=== PATIENT | male | born 1995 | race Two or more races ===

== ENCOUNTER 2023-03-01 18:56 | Inpatient (IN) | payer OTHER ==
[~2023-03-01] VITALS: Ht 203.2 cm; Wt 63.2 kg
[2023-03-01] MEDS ORDERED: ONDANSETRON HCL 4 MG/2 ML VIAL IV ONE (19:15)
[2023-03-01] MEDS ORDERED: SODIUM CHLORIDE 0.9% 1,000 ML IVB ONE (19:15)
[2023-03-01 20:16] LABS: Basophils # (auto) 0.3 10 ^3/uL (0-0.2); Basophils % (auto) 2.6 % (0.0-2.0); Eosinophils # (auto) 0.1 10 ^3/uL (0-0.8); Eosinophils % (auto) 0.5 % (0.0-7.0); Hematocrit 51.9 % (41.0-53.0); Hemoglobin 16.9 g/dL (13.5-17.5); Lymphocytes # (auto) 0.7 10 ^3/uL (0.4-5.4); Lymphocytes % (auto) 5.8 % (10.0-50.0); Mean Corpuscular Hemoglobin 30.7 pg (28.0-32.0); Mean Corpuscular Hgb Conc. 32.5 g/dL (32.0-36.0); Mean Corpuscular Volume 94.4 fL (80.0-100.0); Monocytes # (auto) 0.8 10 ^3/uL (0-1.3); Monocytes % (auto) 5.9 % (0.0-12.0); Neutrophils # (auto) 10.8 10 ^3/uL (1.6-8.6); Neutrophils % (auto) 85.2 % (37.0-80.0); Nucleated Red Blood Cells % 0.1 %; Red Cell Distribution Width 13.7 % (11.8-14.3); White Blood Cell 12.7 10^3/uL (4.4-10.8)
[2023-03-01 20:31] LABS: Alanine Aminotransferase 28 U/L (7-40); Albumin 4.7 g/dL (3.2-4.8); Alkaline Phosphatase 91 U/L (46-116); Anion Gap 10 (5-15); Aspartate Aminotransferase 33 U/L (13-40); BUN/Creatinine Ratio 11.6 (10.0-20.0); Blood Urea Nitrogen 13 mg/dL (9-23); Calcium 9.8 mg/dL (8.7-10.4); Carbon Dioxide 22 mmol/L (20-30); Chloride 97 mmol/L (98-107); Glucose 240 mg/dL (74-106); Lipase 32 U/L (12-53); Potassium 4.9 mmol/L (3.5-5.1); Sodium 129 mmol/L (136-145)
[2023-03-01 20:32] LABS: Bilirubin, Total 0.7 mg/dL (0.2-1.0); Total Protein 7.8 g/dL (5.7-8.2)
[2023-03-01 20:42] LABS: Platelet Estimate Adequate
[2023-03-01] MEDS ORDERED: LACTATED RINGER'S 1,000 ML IV ONE ×2 (21:45→22:30)
[2023-03-01 22:08] LABS: Urine Bacteria NONE SEEN /hpf (None Seen); Urine Blood Negative /uL (Negative); Urine Clarity Clear (Clear); Urine Color Yellow (Yellow); Urine Hyaline Cast MOD /lpf (0 - 2); Urine Mucus FEW (None Seen); Urine Protein, UAD 1+ (Negative); Urine Specific Gravity 1.023 (1.001-1.035); Urine Urobilinogen Normal (Negative); Urine WBC 4 /hpf (0 - 3); Urine pH 5.5 (5.0-8.0)
[2023-03-01] MEDS ORDERED: INSULIN LANTUS (GLARGINE) 1 /0.01ml (100units/ml) SC ONE (22:15)
[2023-03-01] MEDS ORDERED: DEXTROSE (50%) 50ML SYRG IV PRN ×2 (22:15→22:30)
[2023-03-01] MEDS ORDERED: SODIUM CHLORIDE 0.9% 1,000 ML IV SCH (22:15)
[2023-03-01] MEDS ORDERED: INSULIN DRIP 100 UNIT/100ML 100 ML IV SCH (22:15)
[2023-03-01] MEDS ORDERED: ACCU-CHEK COMFORT CURVE STRIP VI SCH (22:30)
[2023-03-01] MEDS ORDERED: HYDROcodone-ACET 5/325MG TAB PO PRN (22:30)
[2023-03-01] MEDS ORDERED: InsuLIN REG 1unit/0.01ml Soln (100units/ml) IV ONE (22:30)
[2023-03-01] MEDS ORDERED: DOCUSATE SOD 100 MG CAP PO PRN (22:30)
[2023-03-01] MEDS ORDERED: ONDANSETRON HCL 4 MG/2 ML VIAL IV PRN (22:30)
[2023-03-01 22:34] LABS: Base Excess -1.8 mmol/L (-2.0-2.0)
[2023-03-01 23:02] LABS: Chloride 95 mmol/L (98-107); Potassium 5.1 mmol/L (3.5-5.1); Sodium 128 mmol/L (136-145)
[2023-03-01 23:03] LABS: Anion Gap 11 (5-15); Calcium 9.5 mg/dL (8.7-10.4); Carbon Dioxide 22 mmol/L (20-30)
[2023-03-01 23:08] LABS: BUN/Creatinine Ratio 17.5 (10.0-20.0); Blood Urea Nitrogen 21 mg/dL (9-23); Glucose 256 mg/dL (74-106)
[2023-03-02] VITALS (8 sets, daily range): BP systolic 113–122; BP diastolic 60–80; PULSE 101–127; RESP 17–20; TEMP 98.2–100.5; O2SAT 92–97
[2023-03-02] MEDS: ACCU-CHEK COMFORT CURVE STRIP VI SCH ×4 (00:20→17:31)
[2023-03-02] MEDS ORDERED: InsuLIN REG 1unit/0.01ml Soln (100units/ml) ONE ×2 (00:28→06:01)
[2023-03-02] MEDS ORDERED: ONDANSETRON HCL 4 MG/2 ML VIAL ONE (00:28)
[2023-03-02] MEDS ORDERED: ACETAMINOPHEN 325 MG TAB PO ONE ×2 (00:28→17:34)
[2023-03-02] MEDS: ACETAMINOPHEN 325 MG TAB PO PRN ×2 (00:33→17:36)
[2023-03-02] MEDS ORDERED: SODIUM CHLORIDE 0.9% 1,000 ML IV SCH ×2 (02:15→04:15)
[2023-03-02 02:44] LABS: COVID19 ANTIGEN SOFIA FIA NEGATIVE (NEGATIVE)
[2023-03-02 02:45] LABS: Rapid Influenza A Negative (Negative)
[2023-03-02 02:48] LABS: Rapid Influenza B Positive (Negative)
[2023-03-02 05:33] LABS: Basophils # (auto) 0 10 ^3/uL (0-0.2); Basophils % (auto) 0.1 % (0.0-2.0); Eosinophils # (auto) 0 10 ^3/uL (0-0.8); Hematocrit 40.1 % (41.0-53.0); Hemoglobin 13.7 g/dL (13.5-17.5); Lymphocytes # (auto) 0.9 10 ^3/uL (0.4-5.4); Lymphocytes % (auto) 8.8 % (10.0-50.0); Mean Corpuscular Hemoglobin 31.2 pg (28.0-32.0); Mean Corpuscular Hgb Conc. 34.1 g/dL (32.0-36.0); Mean Corpuscular Volume 91.4 fL (80.0-100.0); Neutrophils # (auto) 8.9 10 ^3/uL (1.6-8.6); Neutrophils % (auto) 82.1 % (37.0-80.0); Red Blood Cells 4.39 10^6/uL (4.5-5.90); Red Cell Distribution Width 13.3 % (11.8-14.3); White Blood Cell 10.8 10^3/uL (4.4-10.8)
[2023-03-02 05:37] LABS: Alanine Aminotransferase 19 U/L (7-40); Albumin 3.9 g/dL (3.2-4.8); Alkaline Phosphatase 71 U/L (46-116); Anion Gap 7 (5-15); Aspartate Aminotransferase 20 U/L (13-40); Calcium 8.6 mg/dL (8.7-10.4); Carbon Dioxide 24 mmol/L (20-30); Chloride 100 mmol/L (98-107); Glucose 196 mg/dL (74-106); Potassium 4.2 mmol/L (3.5-5.1); Sodium 131 mmol/L (136-145)
[2023-03-02 05:38] LABS: BUN/Creatinine Ratio 21.3 (10.0-20.0); Blood Urea Nitrogen 20 mg/dL (9-23)
[2023-03-02 05:40] LABS: Bilirubin, Total 0.5 mg/dL (0.2-1.0); Total Protein 6.4 g/dL (5.7-8.2)
[2023-03-02] MEDS ORDERED: SODIUM CHLOR 0.9% PF (SALINE LOCK) 10ML VIAL/SYR IV SCH (06:00)
[2023-03-02] MEDS: InsuLIN REG 1unit/0.01ml Soln (100units/ml) SC SCH ×4 (06:04→17:32)
[2023-03-02] MEDS ORDERED: INSREG3 IV (09:38)
[2023-03-02] MEDS ORDERED: INSULIN LANTUS (GLARGINE) 1 /0.01ml (100units/ml) SC SCH ×2 (10:00→22:00)
[2023-03-02] MEDS ORDERED: ENOXAPARIN SOD 40 MG/0.4 ML SYRINGE SC SCH (10:00)
[2023-03-02] MEDS ORDERED: ENOXAPARIN SOD 40 MG/0.4 ML SYRINGE SC ONE (10:11)
[2023-03-02] MEDS: OSELTAMIVIR 75 MG CAP PO SCH ×2 (10:12→21:40)
[2023-03-02] MEDS ORDERED: OSELTAMIVIR 75 MG CAP PO ONE ×2 (10:12→21:32)
[2023-03-02] MEDS: SODIUM CHLORIDE 0.9% 1,000 ML IV SCH ×2 (10:53→23:56)
[2023-03-02] MEDS ORDERED: ERGOCALCIFEROL 50,000 UNIT(1.25MG) CAP PO SCH (11:45)
[2023-03-02] MEDS ORDERED: ERGOCALCIFEROL 50,000 UNIT(1.25MG) CAP PO ONE (12:07)
[2023-03-02] MEDS ORDERED: METOCLOPRAMIDE HCL 10 MG TAB PO ONE ×2 (13:52→21:31)
[2023-03-02] MEDS ORDERED: CEPHALEXIN 250 MG CAP PO ONE ×2 (13:53→21:31)
[2023-03-02] MEDS: CEPHALEXIN 250 MG CAP PO SCH ×2 (13:55→21:40)
[2023-03-02] MEDS: METOCLOPRAMIDE HCL 10 MG TAB PO SCH ×2 (13:55→21:40)
[2023-03-02] MEDS ORDERED: INSULIN LANTUS (GLARGINE) 1 /0.01ml (100units/ml) SC ONE (21:56)
[2023-03-03] VITALS (8 sets, daily range): BP systolic 101–126; BP diastolic 67–77; PULSE 94–111; RESP 16–20; TEMP 97.7–101.4; O2SAT 94–100
[2023-03-03] MEDS ORDERED: InsuLIN REG 1unit/0.01ml Soln (100units/ml) ONE ×3 (00:11→16:50)
[2023-03-03] MEDS: ACCU-CHEK COMFORT CURVE STRIP VI SCH ×4 (00:19→16:44)
[2023-03-03] MEDS: InsuLIN REG 1unit/0.01ml Soln (100units/ml) SC SCH ×4 (00:21→16:47)
[2023-03-03] MEDS ORDERED: CEPHALEXIN 250 MG CAP PO ONE ×2 (05:24→15:02)
[2023-03-03] MEDS ORDERED: METOCLOPRAMIDE HCL 10 MG TAB PO ONE ×3 (05:25→23:05)
[2023-03-03] MEDS: CEPHALEXIN 250 MG CAP PO SCH ×3 (05:30→23:10)
[2023-03-03] MEDS: METOCLOPRAMIDE HCL 10 MG TAB PO SCH ×3 (05:31→23:09)
[2023-03-03] MEDS ORDERED: D5W 5% 1,000 ML IV SCH (06:30)
[2023-03-03 07:03] LABS: Anion Gap 9 (5-15); Carbon Dioxide 24 mmol/L (20-30); Chloride 99 mmol/L (98-107); Potassium 3.7 mmol/L (3.5-5.1); Sodium 132 mmol/L (136-145)
[2023-03-03 07:04] LABS: Calcium 8.7 mg/dL (8.5-10.1)
[2023-03-03 07:08] LABS: Basophils # (auto) 0 10 ^3/uL (0-0.2); Basophils % (auto) 0.3 % (0.0-2.0); Eosinophils # (auto) 0 10 ^3/uL (0-0.8); Hematocrit 42.3 % (41.0-53.0); Hemoglobin 14.2 g/dL (13.5-17.5); Lymphocytes # (auto) 1.1 10 ^3/uL (0.4-5.4); Mean Corpuscular Hemoglobin 30.6 pg (28.0-32.0); Mean Corpuscular Hgb Conc. 33.7 g/dL (32.0-36.0); Mean Corpuscular Volume 90.8 fL (80.0-100.0); Monocytes # (auto) 0.9 10 ^3/uL (0-1.3); Monocytes % (auto) 6.9 % (0.0-12.0); Neutrophils # (auto) 10.3 10 ^3/uL (1.6-8.6); Neutrophils % (auto) 83.8 % (37.0-80.0); Nucleated Red Blood Cells % 0.1 %; Red Blood Cells 4.66 10^6/uL (4.5-5.90); Red Cell Distribution Width 13.4 % (11.8-14.3); White Blood Cell 12.3 10^3/uL (4.4-10.8)
[2023-03-03 07:09] LABS: BUN/Creatinine Ratio 8.1 (10.0-20.0)
[2023-03-03 07:12] LABS: Blood Urea Nitrogen 7 mg/dL (9-23)
[2023-03-03 07:15] LABS: Glucose 34 mg/dL (74-106)
[2023-03-03] MEDS ORDERED: ACCU-CHEK COMFORT CURVE STRIP VI ONE (07:23)
[2023-03-03] MEDS ORDERED: OSELTAMIVIR 75 MG CAP PO ONE (09:24)
[2023-03-03] MEDS: OSELTAMIVIR 75 MG CAP PO SCH ×2 (09:32→23:09)
[2023-03-03] MEDS: SODIUM CHLORIDE 0.9% 1,000 ML IV SCH (15:05)
[2023-03-03] MEDS ORDERED: INSULIN LANTUS (GLARGINE) 1 /0.01ml (100units/ml) SC ONE (23:03)
[2023-03-03] MEDS: INSULIN LANTUS (GLARGINE) 1 /0.01ml (100units/ml) SC SCH (23:11)
[2023-03-04] VITALS (8 sets, daily range): BP systolic 106–126; BP diastolic 57–72; PULSE 96–108; RESP 16–18; TEMP 98.1–99; O2SAT 94–99
[2023-03-04] MEDS: InsuLIN REG 1unit/0.01ml Soln (100units/ml) SC SCH ×4 (01:04→17:44)
[2023-03-04] MEDS: ACCU-CHEK COMFORT CURVE STRIP VI SCH ×4 (01:04→17:40)
[2023-03-04] MEDS: SODIUM CHLORIDE 0.9% 1,000 ML IV SCH ×3 (04:06→22:21)
[2023-03-04] MEDS ORDERED: InsuLIN REG 1unit/0.01ml Soln (100units/ml) ONE (06:19)
[2023-03-04] MEDS: CEPHALEXIN 250 MG CAP PO SCH ×3 (06:23→21:13)
[2023-03-04] MEDS: METOCLOPRAMIDE HCL 10 MG TAB PO SCH ×3 (06:24→21:13)
[2023-03-04 06:39] LABS: Alanine Aminotransferase 23 U/L (7-40); Albumin 3.5 g/dL (3.2-4.8); Alkaline Phosphatase 65 U/L (46-116); Anion Gap 6 (5-15); Aspartate Aminotransferase 31 U/L (13-40); BUN/Creatinine Ratio 10.8 (10.0-20.0); Bilirubin, Total 0.6 mg/dL (0.2-1.0); Blood Urea Nitrogen 8 mg/dL (9-23); Calcium 8.4 mg/dL (8.7-10.4); Carbon Dioxide 26 mmol/L (20-30); Chloride 99 mmol/L (98-107); Potassium 3.7 mmol/L (3.5-5.1); Sodium 131 mmol/L (136-145)
[2023-03-04 06:40] LABS: Total Protein 5.7 g/dL (5.7-8.2)
[2023-03-04 06:46] LABS: Glucose 174 mg/dL (74-106)
[2023-03-04 07:35] LABS: Basophils # (auto) 0 10 ^3/uL (0-0.2); Basophils % (auto) 0.1 % (0.0-2.0); Eosinophils # (auto) 0 10 ^3/uL (0-0.8); Hematocrit 38.6 % (41.0-53.0); Hemoglobin 13.3 g/dL (13.5-17.5); Lymphocytes % (auto) 10.5 % (10.0-50.0); Mean Corpuscular Hgb Conc. 34.3 g/dL (32.0-36.0); Mean Corpuscular Volume 90.3 fL (80.0-100.0); Monocytes # (auto) 0.6 10 ^3/uL (0-1.3); Monocytes % (auto) 6.6 % (0.0-12.0); Neutrophils # (auto) 7.6 10 ^3/uL (1.6-8.6); Neutrophils % (auto) 82.8 % (37.0-80.0); Red Blood Cells 4.28 10^6/uL (4.5-5.90); Red Cell Distribution Width 13.4 % (11.8-14.3); White Blood Cell 9.1 10^3/uL (4.4-10.8)
[2023-03-04] MEDS: OSELTAMIVIR 75 MG CAP PO SCH ×2 (09:35→21:13)
[2023-03-04] MEDS: INSULIN LANTUS (GLARGINE) 1 /0.01ml (100units/ml) SC SCH (21:14)
[2023-03-05] MEDS: ACCU-CHEK COMFORT CURVE STRIP VI SCH ×3 (00:24→11:39)
[2023-03-05] MEDS: InsuLIN REG 1unit/0.01ml Soln (100units/ml) SC SCH ×3 (00:26→11:57)
[2023-03-05 05:00] VITALS: BP 108/67; PULSE 90; RESP 16; TEMP 97.9; O2SAT 95
[2023-03-05] MEDS: CEPHALEXIN 250 MG CAP PO SCH ×2 (05:36→13:59)
[2023-03-05] MEDS: METOCLOPRAMIDE HCL 10 MG TAB PO SCH ×2 (05:36→13:59)
[2023-03-05 08:18] VITALS: PULSE 85
[2023-03-05 08:20] VITALS: BP 110/72; PULSE 93; RESP 18; TEMP 98.8; O2SAT 94
[2023-03-05 08:56] VITALS: BP 110/72; PULSE 93; RESP 18; TEMP 98.8; O2SAT 94
[2023-03-05] MEDS: OSELTAMIVIR 75 MG CAP PO SCH (09:16)
[2023-03-05 12:31] VITALS: BP 121/68; PULSE 94; RESP 18; TEMP 98.3; O2SAT 98
[2023-03-05 13:18] VITALS: BP 121/68; PULSE 94; RESP 18; TEMP 98.3; O2SAT 98
== END 2023-03-05 17:34 | disposition home or self-care (01) | DRG 720 ==
LOC: ER 18:56 → TELE 22:25 → TELE-WESTW 03-02 09:38
PROVIDERS: ADMIT Internal Medicine; ATTEND Internal Medicine
DX: A41.9 Sepsis, unspecified organism (principal); E10.10 Type 1 diabetes mellitus with ketoacidosis without coma; E10.69 Type 1 diabetes mellitus with other specified complication; E87.0 Hyperosmolality and hypernatremia; E87.8 Other disorders of electrolyte and fluid balance, not elsewhere classified; E87.1 Hypo-osmolality and hyponatremia; N20.0 Calculus of kidney; E55.9 Vitamin D deficiency, unspecified; E86.0 Dehydration; N30.90 Cystitis, unspecified without hematuria; Z20.822 Contact with and (suspected) exposure to COVID-19; J11.1 Influenza due to unidentified influenza virus with other respiratory manifestations
CPT/HCPCS: 36415; 71046; 74176; 80048; 80053; 81001; 82010; 82043; 82306; 82607; 82962; 83036; 83690; 83735; 83935; 84300; 84443; 85025; 87086; 87426; 87804; 93005; G0378; J1815; J2405

== ENCOUNTER 2024-10-24 18:13 | Inpatient (IN) | payer MEDICAID, OTHER ==
[~2024-10-24] VITALS: Ht 203.2 cm; Wt 65.4 kg
[~2024-10-24 18:13] MED LIST: INSREG3 IV
[2024-10-24 19:27] LABS: Hematocrit 40.9 % (41.0-53.0); Hemoglobin 14.0 g/dL (13.5-17.5); Mean Corpuscular Hemoglobin 31.2 pg (28.0-32.0); Mean Corpuscular Volume 90.9 fL (80.0-100.0); Nucleated Red Blood Cells % 0.0 %
[2024-10-24 19:46] LABS: Alanine Aminotransferase 38 U/L (7-40); Albumin 4.6 g/dL (3.2-4.8); Anion Gap 6 (5-15); BUN/Creatinine Ratio 13.3 (10.0-20.0); Bilirubin, Total 0.9 mg/dL (0.2-1.0); Blood Urea Nitrogen 12 mg/dL (9-23); Calcium 9.9 mg/dL (8.7-10.4); Carbon Dioxide 30 mmol/L (20-31); Chloride 105 mmol/L (98-107); Glucose 100 mg/dL (74-106); Lipase 33 U/L (12-53); Potassium 4.3 mmol/L (3.5-5.1); Sodium 141 mmol/L (136-145); Total Protein 6.7 g/dL (5.7-8.2)
[2024-10-24 19:47] LABS: Alkaline Phosphatase 121 U/L (46-116); Creatine Kinase IFCC 476 U/L (46-171)
--- NOTE | 2024-10-24 20:43 | ED.PDOC ---
History of Present Illness HPI Comments 29-year-old male with PMHx DM presents with a chief complaint of general malaise. Patient is lean and "fragile" and has multiple comorbidities and multiple specialists. Patient was sent by one of his doctors for a general wellness evaluation after finding out patients CK levels were "abnormal". Patient was mildly hypertensive and tachycardic at arrival. Chief Complaint: Abnormal LAB's Time Seen by MD: 20:40 Reviewed Notes: Nurses Notes, Medications, Allergies Allergies: Coded Allergies: NO KNOWN ALLERGIES (Unverified , 03/01/23) Home Meds Reported Medications Insulin Regular (Human) (Humulin R) 100 Unit/Ml Inj, 100 UNIT IV, INJ 03/02/23 Information Source: Patient, Friend Mode of Arrival: Ambulatory Severity: Moderate Timing: Days Duration: Since onset Prehospital treatment: None Past Medical History PAST MEDICAL HISTORY: DM Past Medical History (Other): Additional comorbidities Surgical History: Denies all surgeries Family History Family History: Reviewed,noncontributory to illness, Family hx of DM Social History Smoker: Non-Smoker Alcohol: Denies ETOH Use Drugs: Denies Drug Use Lives In: Home Constitutional: reports: malaise, weakness; denies: chills, diaphoresis, fat igue, fever, sweats, others EENTM: denies: blurred vision, double vision, ear bleeding, ear discharge, ear drainage, ear pain, ear ringing, eye pain, eye redness, hearing loss, mouth pain, mouth swelling, nasal discharge, nose bleeding, nose congestion, nose pain, photophobia, tearing, throat pain, throat swelling, voice changes, others Respiratory: denies: cough, hemoptysis, orthopnea, SOB at rest, shortness of breath, SOB with excertion, stridor, wheezing, others Cardiovascular: denies: chest pain, dizzy spells, diaphoresis, Dyspnea on exertion, edema, irregular heart beat, left arm pain, lightheadedness, palpitations, PND, syncope, others Gastrointestinal: denies: abdomen distended, abdominal pain, blood streaked bowels, constipated, diarrhea, dysphagia, difficulty swallowing, hematemesis, melena, nausea, poor appetite, poor fluid intake, rectal bleeding, rectal pain, vomiting, others Genitourinary: denies: burning, dysuria, flank pain, frequency, hematuria, incontinence, penile discharge, penile sore, pain, testicle pain, testicle swelling, urgency, others Neurological: denies: dizziness, fainting, headache, left sided numbness, left sided weakness, numbness, paresthesia, pre-existing deficit, right sided numbness, right sided weakness, seizure, speech problems, tingling, tremors, weakness, others Musculoskeletal: denies: back pain, gout, joint pain, joint swelling, muscle pain, muscle stiffness, neck pain, others Integumetry: denies: bruises, change in color, change in hair/nails, dryness, laceration, lesions, lumps, rash, wounds, others Allergic/Immunocompromised: denies: Difficulty Healing, Frequent Infections, Hives, Itching, others Hematologic/Lymphatic: denies: anemia, blood clots, easy bleeding, easy bruising, swollen glands, others Endocrine: denies: excessive hunger, excessive sweating, excessive thirst, excessive urination, flushing, intolerance to cold, intolerance to heat, unexplained weight gain, unexplained weight loss, others Psychiatric: denies: anxiety, bipolar disorder, depression, hopeless, panic disorder, schizophrenia, sleepless, suicidal, others All Other Systems: Reviewed and Negative Physical Exam General Appearance: Mild Distress (Patient appears to be in moderate distress. Patient appears Marfan like in his physical habitus and is a poor historian and relatively minimal conversationalist.), Normal HEENT: Normal ENT Inspection, Pharynx Normal, TMs Normal Neck: Full Range of Motion, Normal, Normal Inspection Respiratory: Chest Non-Tender, Lungs Clear, No Accessory Muscle Use, No Respi ratory Distress, Normal Breath Sounds Cardiovascular: No Edema, No JVD, No Murmur, No Gallop, Normal Peripheral Pulses, Regular Rate/Rhythm Breast Exam: Deferred Gastrointestinal: No Pulsatile Mass, Normal Bowel Sounds, Soft Genitalia: Deferred Pelvic: Deferred Rectal: Deferred Extremities: No calf tenderness, Normal capillary refill, No pedal edema, Other (Patient ambulates slowly and appears to be weak) Musculoskeletal : Apperance: Normal Neurologic: Alert, Motor Weakness Cerebellar Function: NOT DONE Reflexes: NOT DONE Skin: Dry, Normal Color, Warm Lymphatic: No Adenopathy Was a procedure done? Was a procedure done?: No Differential Dx Considerations may include: Sepsis, electrolyte abnormality, elevated CK, rhabdomyolysis, acute coronary syndrome X-Ray, Labs, Meds, VS Vital Signs Date Time Temp Pulse Resp B/P (MAP) Pulse Ox O2 Delivery O2 Flow Rate FiO2 10/24/24 21:22 90 10/24/24 18:15 97.8 105 18 157/78 95 97.8 Lab Test 10/24/24 19:05 Range/Units White Blood Count 5.7 4.4-10.8 10^3/uL Red Blood Count 4.49 L 4.5-5.90 10^6/uL Hemoglobin 14.0 13.5-17.5 g/dL Hematocrit 40.9 L 41.0-53.0 % Mean Corpuscular Volume 90.9 80.0-100.0 fL Mean Corpuscular Hemoglobin 31.2 28.0-32.0 pg Mean Corpuscular Hemoglobin Concent 34.4 32.0-36.0 g/dL Red Cell Distribution Width 13.4 11.8-14.3 % Platelet Count 195 140-450 10^3/uL Mean Platelet Volume 8.1 6.9-10.8 fL Neutrophils (%) (Auto) 68.8 37.0-80.0 % Lymphocytes (%) (Auto) 23.3 10.0-50.0 % Monocytes (%) (Auto) 7.2 0.0-12.0 % Eosinophils (%) (Auto) 0.3 0.0-7.0 % Basophils (%) (Auto) 0.4 0.0-2.0 % Neutrophils # (Auto) 3.9 1.6-8.6 10 ^3/uL Lymphocytes # (Auto) 1.3 0.4-5.4 10 ^3/uL Monocytes # (Auto) 0.4 0-1.3 10 ^3/uL Eosinophils # (Auto) 0 0-0.8 10 ^3/uL Basophils # (Auto) 0 0-0.2 10 ^3/uL Nucleated Red Blood Cells 0.0 % Sodium Level 141 136-145 mmol/L Potassium Level 4.3 3.5-5.1 mmol/L Chloride Level 105 98-107 mmol/L Carbon Dioxide Level 30 20-31 mmol/L Anion Gap 6 5-15 Blood Urea Nitrogen 12 9-23 mg/dL Creatinine 0.90 0.700-1.30 mg/dL Glomerular Filtration Rate Calc 117 >90 mL/min BUN/Creatinine Ratio 13.3 10.0-20.0 Serum Glucose 100 74-106 mg/dL Lactic Acid Level 0.9 0.4-2.0 mmol/L Calcium Level 9.9 8.7-10.4 mg/dL Total Bilirubin 0.9 0.2-1.0 mg/dL Aspartate Amino Transferase (AST) 36 13-40 U/L Alanine Aminotransferase (ALT) 38 7-40 U/L Alkaline Phosphatase 121 H 46-116 U/L Creatine Kinase 476 H 46-171 U/L Troponin I High Sensitivity < 3 L </=54 ng/L Total Protein 6.7 5.7-8.2 g/dL Albumin 4.6 3.2-4.8 g/dL Lipase 33 12-53 U/L X-Ray, Labs, Meds, VS Comment Multiple studies were pending at time of this note. Serum studies at time of the no revealed a significant elevation in the CK value. EKG revealed a sinus rhythm with a rate of 90. Right axis deviation as well as ST-elevation which was probably normal due to early repolarization pattern. Baseline wander was noted in V3. TX interval of 144 and QT interval of 345. Due to the patient's general overall poor health, patient will be under for hydration and continued evaluation of his CK concerns. Additional information will be gleaned on test as returned. Time of 1ST Reevaluation: 21:44 Reevaluation 1ST: Unchanged Consultation: PCP Patient Education/Counseling: Diagnosis, Treatment, Need For Follow Up Family Education/Counseling: Diagnosis, Treatment, No Family Present SEPSIS Sepsis Screen Date sepsis recognized/suspect: Oct 24, 2024 Time Sepsis recognized/suspect: 1817 Recent Procedure: No On Antibiotic Therapy: No Respiratory Rate >20: No Heart Rate >90: Yes Temp<36 C (96.8 F) or >38.3 C: No SBP <90 or MAP <65 mmHG: No New Acute Mental Status Change: No Is the patient on CPAP, BIPAP,: No Physician Orders Heplock Iv (10/24/24 ) Urinalysis (10/24/24 18:57) Electrocardigram (10/24/24 18:57) Sodium Chloride 0.9% (10/24/24 21:15) Saline Lock (10/24/24 21:19) Vital Signs Date Time Temp Pulse Resp B/P (MAP) Pulse Ox O2 Delivery O2 Flow Rate FiO2 10/24/24 21:22 90 10/24/24 18:15 97.8 105 18 157/78 95 97.8 Laboratory Tests Test 10/24/24 19:05 Lactic Acid Level 0.9 mmol/L (0.4-2.0) White Blood Count 5.7 10^3/uL (4.4-10.8) Departure 1 Departure Time of Disposition: 21:45 Impression: Primary Impression: Rhabdomyolysis Additional Impressions: Elevated CK General weakness Disposition: ADMITTED INPATIENT Condition: Fair Discharged With: Self, Friend Critical Care Note Critical Care Time?: No Stability Stability form required: No Heart Score Heart Score: Heart Score Response (Comments) Value History N/A 0 EKG N/A 0 Age N/A 0 Risk Factors N/A 0 Troponin N/A 0 Total 0 I personally scribed for CELI HEIN PAC ([email or web address]) on 10/24/24 at 20:43. Electronically submitted by Morales Jaquez ([email or web address]). CELI HEIN PAC Oct 24, 2024 20:43
[2024-10-24] MEDS: SODIUM CHLORIDE 0.9% 1,000 ML IV ONE ×2 (21:45→21:49)
[2024-10-24 22:41] LABS: Urine Protein, UAD TRACE (Negative)
[2024-10-24 23:08] LABS: Base Excess 0.2 mmol/L (-2.0-3.0)
[2024-10-24] MEDS ORDERED: DEXTROSE (50%) 50ML SYRG IV PRN (23:15)
[2024-10-24 23:41] LABS: Amphetamine Screen, Urine Neg (NEGATIVE); Barbiturate Scree,Urine Neg (NEGATIVE); Benzodiazephine Screen, Urine Neg (NEGATIVE); Cannabinoid Screen, Urine Neg (NEGATIVE); Cocaine Screen, Urine Neg (NEGATIVE); Opiate Scree,Urine Neg (NEGATIVE); Phencyclidine Screen, Urine Neg (NEGATIVE)
--- NOTE | 2024-10-24 23:42 | DVHHPRES ---
History of Present Illness Resident Creating Document: PATRICA JOHNSON RESIDENT History of Present Illness Winston Bernardo a 29 year old male, with past medical history of DM type 1, DKA and "intellectual disability". The patient presented to the ED with a chief complaint of 2 days of progressive general weakness, associated with fatigue. The patient is poor historian, he is accompanied by his sister who also is his caregiver. Family member provided the information, and report that during his last medical check up levels of CK were found "elevated", for that reason he was advised by his doctor to visit the ED today. His family member also reports noticing bilateral lower limb swelling edema and fasciculation on both sides of his face at the level of the chicks for the last week. The patient denies fever, chills, vomit, nausea, diarrhea, sick contacts, new medications, new food or recent travels. On initial evaluation the patient is tachycardic, with dry mucus membranes, CK is 476, troponins <3, the EKG revealed a sinus rhythm with a rate of 90, KS interval of 144 and QT interval of 345. Patient will be admitted for hydration and further evaluation. The patient is poor historian,the interview was conducted with family member (Sister) who provide the informatio [employer] SPECIALIST: Other (intellectual discability ) Endocrine: Diabetes (Type 1, since 6 yo., with 1 episode of DKA last year. ) Past Surgical History: None Family History: CAD, Hypertension, Other (Family history of heart problems, father of CT.) Smoke: No ALCOHOL: none Drugs: None Lives: with Family Review of Systems Constitutional: Yes: Weakness, Malaise; No: Fever, Chills, Sweats, Other Eyes: No: Pain, Vision change, Conjunctivae inflammation, Eyelid inflammation, Other, Redness ENT: No: Ear pain, Ear discharge, Nose pain, Nose discharge, Nose congestion, Mouth pain, Mouth swelling, Throat pain, Throat swelling, Other Respiratory: No: Cough, Dry, Shortness of breath, SOB with excertion, Wheezing, Hemoptysis, Pleuritic Pain, Sputum, Wheezing, Other Cardiovascular: No: Chest Pain, Palpitations, Orthopnea, Paroxysmal Noc. Dyspnea, Edema, Lt Headedness, Other Gastrointestinal: No: Nausea, Vomiting, Abdominal Pain, Diarrhea, Constipation, Melena, Hematochezia, Other Genitourinary: No Dysuria, No Frequency, No Incontinence, No Hematuria, No Retention, No Other Musculoskeletal: No: other, neck pain, shoulder pain, arm pain, back pain, hand pain, leg pain, foot pain Skin: No: Rash, Lesions, Jaundice, Bruising, Other Neurological: Weakness; No: Numbness, Incoordination, Change in speech, Confusion, Seizures, Other Allergies: Coded Allergies: NO KNOWN ALLERGIES (Unverified , 03/01/23) Medications Current Medications Medications Dose Ordered Sig/Sierra Route Start Time Stop Time Status Last Admin Dose Admin Diagnostic Test (Pha) 1 strip Q6HR 10/25/24 00:00 Insulin Human Regular Q6HR SC 10/25/24 00:00 Dextrose 50 ml UD PRN IV 10/24/24 23:15 Exam Vital Signs Vital Signs Date Time Temp Pulse Resp B/P (MAP) Pulse Ox O2 Delivery O2 Flow Rate FiO2 10/24/24 21:42 98.3 90 18 110/79 (89) 100 98.3 10/24/24 21:42 Room Air General Appearance: Alert, Oriented X3, Cooperative, Other (cachectic, pale.) HEENT: Atraumatic, Other (Dry mucus membranes) Respiratory: Clear to auscultation, Normal air movement Cardiovascular: Regular rate, Normal S1, Normal S2, No murmurs Abdominal: Normal bowel sounds, Soft, No tenderness, No hepatospenomegaly, No masses Extremities: No clubbing, No cyanosis, No edema, Normal pulses, No tenderness/swelling Skin: No rashes, No breakdown, No significant lesion Neuro: Normal gait, Normal speech, Strength at 5/5 X4 ext, Normal tone, Sensation intact, Cranial nerves 3-12 NL, Reflexes 2+ Psych/Mental Status: Other (cooperative, calm.) Labs/Xrays Labs Test 10/24/24 23:00 10/24/24 22:00 10/24/24 21:31 10/24/24 19:05 Range/Units Blood Gas Specimen Type Arterial Blood Gas Sample Site Right radial Blood Gas Patient Temperature 37.0 Arterial Blood Date Drawn [id number] Arterial Blood pH 7.426 7.350-7.450 Arterial Blood Partial Pressure CO2 37.8 35.0-48.0 mmHg Arterial Blood Partial Pressure O2 83.3 83.0-108.0 mmHg Arterial Blood HCO3 24.3 21.0-28.0 mmol/L Arterial Blood Oxygen Saturation 96.0 94.0-98.0 % Arterial Blood Base Excess 0.2 -2.0-3.0 mmol/L Arterial Blood Oxyhemoglobin 94.7 94.0-98.0 % Arterial Blood Carboxyhemoglobin 0.8 0.5-1.5 % Arterial Blood Methemoglobin 0.6 0.0-1.5 % Anthony Test Yes Blood Gas Total Hemoglobin 14.20 13.5-17.5 g/dL Blood Gas Modality Room air Blood Gas Spontaneous Rate 20 FiO2 % 21.0 Urine Color Yellow Yellow Urine Clarity Turbid H Clear Urine pH 6.0 5.0-9.0 Urine Specific Horton 1.022 1.001-1.035 Urine Protein Trace H Negative Urine Ketones Negative Negative Urine Blood Negative Negative /uL Urine Nitrite Negative Negative Urine Bilirubin Negative Negative Urine Urobilinogen Normal Negative mg/dL Urine Leukocyte Esterase Negative Negative /uL Urine Glucose Normal Normal mg/dL POC Glucose 133 H 70-106 mg/dl White Blood Count 5.7 4.4-10.8 10^3/uL Red Blood Count 4.49 L 4.5-5.90 10^6/uL Hemoglobin 14.0 13.5-17.5 g/dL Hematocrit 40.9 L 41.0-53.0 % Mean Corpuscular Volume 90.9 80.0-100.0 fL Mean Corpuscular Hemoglobin 31.2 28.0-32.0 pg Mean Corpuscular Hemoglobin Concent 34.4 32.0-36.0 g/dL Red Cell Distribution Width 13.4 11.8-14.3 % Platelet Count 195 140-450 10^3/uL Mean Platelet Volume 8.1 6.9-10.8 fL Neutrophils (%) (Auto) 68.8 37.0-80.0 % Lymphocytes (%) (Auto) 23.3 10.0-50.0 % Monocytes (%) (Auto) 7.2 0.0-12.0 % Eosinophils (%) (Auto) 0.3 0.0-7.0 % Basophils (%) (Auto) 0.4 0.0-2.0 % Neutrophils # (Auto) 3.9 1.6-8.6 10 ^3/uL Lymphocytes # (Auto) 1.3 0.4-5.4 10 ^3/uL Monocytes # (Auto) 0.4 0-1.3 10 ^3/uL Eosinophils # (Auto) 0 0-0.8 10 ^3/uL Basophils # (Auto) 0 0-0.2 10 ^3/uL Nucleated Red Blood Cells 0.0 % Sodium Level 141 136-145 mmol/L Potassium Level 4.3 3.5-5.1 mmol/L Chloride Level 105 98-107 mmol/L Carbon Dioxide Level 30 20-31 mmol/L Anion Gap 6 5-15 Blood Urea Nitrogen 12 9-23 mg/dL Creatinine 0.90 0.700-1.30 mg/dL Glomerular Filtration Rate Calc 117 >90 mL/min BUN/Creatinine Ratio 13.3 10.0-20.0 Serum Glucose 100 74-106 mg/dL Lactic Acid Level 0.9 0.4-2.0 mmol/L Calcium Level 9.9 8.7-10.4 mg/dL Total Bilirubin 0.9 0.2-1.0 mg/dL Aspartate Amino Transferase (AST) 36 13-40 U/L Alanine Aminotransferase (ALT) 38 7-40 U/L Alkaline Phosphatase 121 H 46-116 U/L Creatine Kinase 476 H 46-171 U/L Troponin I High Sensitivity < 3 L </=54 ng/L Total Protein 6.7 5.7-8.2 g/dL Albumin 4.6 3.2-4.8 g/dL Lipase 33 12-53 U/L SEPSIS Sepsis Screen Date sepsis recognized/suspect: Oct 24, 2024 Time Sepsis recognized/suspect: 1817 Recent Procedure: No On Antibiotic Therapy: No Respiratory Rate >20: No Heart Rate >90: Yes Temp<36 C (96.8 F) or >38.3 C: No SBP <90 or MAP <65 mmHG: No New Acute Mental Status Change: No Is the patient on CPAP, BIPAP,: No Physician Orders Heplock Iv (10/24/24 ) Electrocardigram (10/24/24 18:57) Saline Lock (10/24/24 21:19) Abg W/ Co-Ox (10/24/24 21:46) Accucheck (10/24/24 ) Admit (10/24/24 23:00) Code Status (10/24/24 23:00) Vital Signs .PER UNIT PROTOCOL (10/24/24 23:00) Review Orders With Adm.Md (10/24/24 23:00) Bedrest With Bathroom Privileg (10/24/24 23:00) Notify Md Of Changes From Base (10/24/24 23:00) Advance Directive (10/24/24 23:00) Echo 2d Mode Cardiac Dop (10/24/24 23:00) Patient Condition (10/24/24 23:00) Allergies (10/24/24 23:00) Drug Screen (10/24/24 23:00) Notify Md Of Changes From Base (10/24/24 23:00) Glucose Blood (Accu-Chek Comfort Curve T (10/25/24 00:00) Insulin R (Human) (Insulin R) (10/25/24 00:00) Dextrose 50% Syringe (10/24/24 23:15) Complete Blood Count (10/25/24 04:00) Comprehensive Metabolic Panel (10/25/24 04:00) Blood Culture (10/24/24 23:08) Chest Xray 1 View (10/24/24 23:35) Vital Signs Date Time Temp Pulse Resp B/P (MAP) Pulse Ox O2 Delivery O2 Flow Rate FiO2 10/24/24 21:42 98.3 90 18 110/79 (89) 100 98.3 10/24/24 21:42 90 18 100 Room Air 10/24/24 21:22 90 10/24/24 18:15 97.8 105 18 157/78 95 97.8 Laboratory Tests Test 10/24/24 19:05 Lactic Acid Level 0.9 mmol/L (0.4-2.0) White Blood Count 5.7 10^3/uL (4.4-10.8) Medications Medications Dose Ordered Sig/Sierra Route Start Time Stop Time Status Last Admin Dose Admin Sodium Chloride 1,000 ml @ 1,000 mls/hr Q1H ONCE IV 10/24/24 21:45 10/24/24 22:44 DC 10/24/24 21:49 1,000 MLS/HR Assessment/Plan Assessment/Plan #Generalized weakness possible metabolic origin. #Dehydration #Bilateral leg swelling #R/O CHF IV fluids, NS UA Blood cultures EKG BNP ECHO #R/O rhabdomyolysis CK elevated 476 #DM type 1 HbA1C Insulin sliding scale #Intellectual disability Diabetic diet DVT prophylaxis- deambulanting patient. PUD prophylaxis Protonics. Goals of care discussed with the patient > 35 min. Discussed plan of care with Dr. Morley Code status: Full code PCP: Dr. Maureen Rodriguez Plan discussed with: Patient and Caregiver (Sister), the patient and family member agreed with the admission plan. Plan discussed with: Patient, Other (Sister) My Orders Orders - PATRICA JOHNSON Procedure Category Date Status Time Admit ADMIT 10/24/24 Transmitted 23:00 Code Status CODE 10/24/24 Transmitted 23:00 Vital Signs [facility] 10/24/24 In Process 23:00 Review Orders With [facility] 10/24/24 In Process Adm. 23:00 Bedrest With Bathroom [facility] 10/24/24 In Process Privileg 23:00 Notify Of Changes [facility] 10/24/24 In Process From Base 23:00 Advance Directive [facility] 10/24/24 In Process 23:00 Echo 2d Mode Cardiac US 10/24/24 Logged DOP 23:00 Patient Condition ORDERS 10/24/24 Transmitted 23:00 Allergies VERENICE 10/24/24 In Process 23:00 Drug Screen LAB 10/24/24 In Process 23:00 Notify Of Changes [facility] 10/24/24 In Process From Base 23:00 Glucose Blood PHA 10/25/24 In Process (Accu-Chek Comfort 00:00 Insulin R (Human) PHA 10/25/24 In Process (Insulin R) 00:00 Dextrose 50% Syringe PHA 10/24/24 In Process 23:15 Complete Blood Count LAB 10/25/24 Verified 04:00 Comprehensive LAB 10/25/24 Verified Metabolic Panel 04:00 Blood Culture SHAD 10/24/24 In Process 23:08 Chest Xray 1 View XY 10/24/24 Taken 23:35 Billing Provider: RYAN MORLEY MD Common Visit Codes: [id number] INP/OBS CARE (HIGH) Secondary Visit Codes: [id number] CARE PLAN 30 MINUTES PATRICA JOHNSON RESIDENT Oct 24, 2024 23:42
[2024-10-25] MEDS: InsuLIN REG 1unit/0.01ml Soln (100units/ml) SC SCH
[2024-10-25] MEDS: PANTOPRAZOLE 40 MG TAB PO ONE (00:20)
[2024-10-25] MEDS: ACCU-CHEK COMFORT CURVE STRIP VI SCH (00:21)
--- NOTE | 2024-10-25 00:27 | DVH ---
CHEST RADIOGRAPH REASON FOR EXAM: R/O CHF COMPARISON: XY CHEST TWO VIEWS ROUTINE on DOS: 03/01/23 TECHNIQUE: One view of the chest is provided FINDINGS: The cardiomediastinal silhouette is within normal limits for technique. There is no focal a irspace disease. There is no significant pleural effusion. No acute bony abnormality is identified. IMPRESSION: No radiographic evidence of acute cardiopulmonary process.
[2024-10-25 04:01] LABS: Hematocrit 38.7 % (41.0-53.0); Hemoglobin 13.3 g/dL (13.5-17.5); Mean Corpuscular Hemoglobin 31.8 pg (28.0-32.0); Mean Corpuscular Volume 92.5 fL (80.0-100.0); Nucleated Red Blood Cells % 0.1 %
[2024-10-25 04:21] LABS: Alanine Aminotransferase 33 U/L (7-40); Albumin 4.3 g/dL (3.2-4.8); Alkaline Phosphatase 105 U/L (46-116); Anion Gap 9 (5-15); BUN/Creatinine Ratio 11.0 (10.0-20.0); Blood Urea Nitrogen 9 mg/dL (9-23); Calcium 9.7 mg/dL (8.7-10.4); Carbon Dioxide 28 mmol/L (20-31); Chloride 105 mmol/L (98-107); Potassium 4.0 mmol/L (3.5-5.1); Sodium 142 mmol/L (136-145); Total Protein 6.4 g/dL (5.7-8.2)
[2024-10-25 04:22] LABS: Bilirubin, Total 1.0 mg/dL (0.2-1.0); Glucose 135 mg/dL (74-106)
[2024-10-25] MEDS ORDERED: INSU100I70 SC (12:22)
[2024-10-25] MEDS ORDERED: [UNRECOGNIZED DRUG - CODE] XX (12:22)
--- NOTE | 2024-10-25 12:24 | DVHDS2 ---
Discharge Summary Date of Admission Oct 24, 2024 at 23:00 Date of Discharge: Oct 25, 2024 Labs/Diagnostic Data: Laboratory Results Test 10/25/24 06:16 10/25/24 03:45 10/24/24 23:00 10/24/24 22:00 POC Glucose 156 mg/dl (70-106) White Blood Count 5.7 10^3/uL (4.4-10.8) Red Blood Count 4.18 10^6/uL (4.5-5.90) Hemoglobin 13.3 g/dL (13.5-17.5) Hematocrit 38.7 % (41.0-53.0) Mean Corpuscular Volume 92.5 fL (80.0-100.0) Mean Corpuscular Hemoglobin 31.8 pg (28.0-32.0) Mean Corpuscular Hemoglobin Concent 34.4 g/dL (32.0-36.0) Red Cell Distribution Width 13.6 % (11.8-14.3) Platelet Count 176 10^3/uL (140-450) Mean Platelet Volume 8.1 fL (6.9-10.8) Neutrophils (%) (Auto) 68.6 % (37.0-80.0) Lymphocytes (%) (Auto) 25.7 % (10.0-50.0) Monocytes (%) (Auto) 5.2 % (0.0-12.0) Eosinophils (%) (Auto) 0.3 % (0.0-7.0) Basophils (%) (Auto) 0.2 % (0.0-2.0) Neutrophils # (Auto) 3.9 10 ^3/uL (1.6-8.6) Lymphocytes # (Auto) 1.5 10 ^3/uL (0.4-5.4) Monocytes # (Auto) 0.3 10 ^3/uL (0-1.3) Eosinophils # (Auto) 0 10 ^3/uL (0-0.8) Basophils # (Auto) 0 10 ^3/uL (0-0.2) Nucleated Red Blood Cells 0.1 % Sodium Level 142 mmol/L (136-145) Potassium Level 4.0 mmol/L (3.5-5.1) Chloride Level 105 mmol/L (98-107) Carbon Dioxide Level 28 mmol/L (20-31) Anion Gap 9 (5-15) Blood Urea Nitrogen 9 mg/dL (9-23) Creatinine 0.82 mg/dL (0.700-1.30) Glomerular Filtration Rate Calc 120 mL/min (>90) BUN/Creatinine Ratio 11.0 (10.0-20.0) Serum Glucose 135 mg/dL (74-106) Hemoglobin A1c 6.9 % A1C (<5.7) Calcium Level 9.7 mg/dL (8.7-10.4) Total Bilirubin 1.0 mg/dL (0.2-1.0) Aspartate Amino Transferase (AST) 35 U/L (13-40) Alanine Aminotransferase (ALT) 33 U/L (7-40) Alkaline Phosphatase 105 U/L (46-116) Total Protein 6.4 g/dL (5.7-8.2) Albumin 4.3 g/dL (3.2-4.8) Blood Gas Specimen Type Arterial Blood Gas Sample Site Right radial Blood Gas Patient Temperature 37.0 Arterial Blood Date Drawn [id number] Arterial Blood pH 7.426 (7.350-7.450) Arterial Blood Partial Pressure CO2 37.8 mmHg (35.0-48.0) Arterial Blood Partial Pressure O2 83.3 mmHg (83.0-108.0) Arterial Blood HCO3 24.3 mmol/L (21.0-28.0) Arterial Blood Oxygen Saturation 96.0 % (94.0-98.0) Arterial Blood Base Excess 0.2 mmol/L (-2.0-3.0) Arterial Blood Oxyhemoglobin 94.7 % (94.0-98.0) Arterial Blood Carboxyhemoglobin 0.8 % (0.5-1.5) Arterial Blood Methemoglobin 0.6 % (0.0-1.5) Anthony Test Yes Blood Gas Total Hemoglobin 14.20 g/dL (13.5-17.5) Blood Gas Modality Room air Blood Gas Spontaneous Rate 20 FiO2 % 21.0 Urine Color Yellow (Yellow) Urine Clarity Turbid (Clear) Urine pH 6.0 (5.0-9.0) Urine Specific [place] 1.022 (1.001-1.035) Urine Protein Trace (Negative) Urine Ketones Negative (Negative) Urine Blood Negative /uL (Negative) Urine Nitrite Negative (Negative) Urine Bilirubin Negative (Negative) Urine Urobilinogen Normal mg/dL (Negative) Urine Leukocyte Esterase Negative /uL (Negative) Urine Glucose Normal mg/dL (Normal) Urine Opiates Screen Neg (NEGATIVE) Urine Fentanyl Screen Neg (NEGATIVE) Urine Barbiturates Screen Neg (NEGATIVE) Urine Phencyclidine Screen Neg (NEGATIVE) Urine Amphetamines Screen Neg (NEGATIVE) Urine Benzodiazepines Screen Neg (NEGATIVE) Urine Cocaine Screen Neg (NEGATIVE) Urine Cannabinoids Screen Neg (NEGATIVE) Test 10/24/24 19:05 Lactic Acid Level 0.9 mmol/L (0.4-2.0) Creatine Kinase 476 U/L (46-171) Troponin I High Sensitivity < 3 ng/L (</=54) Lipase 33 U/L (12-53) Other Laboratory Tests 10/25/24 03:45 Brief Hx & Hospital Course: 29 yo M with T1 DM sent to ED from PCP with high CK. asymptomatic, compliant with nisulin, no prior trauma or seizure. per caregiver patient likes to stay put on one place for an extended amount of time. oral intake adequate. kidney function good, received iv fluids in ED. stable to DC home, refilled lispro and CGM sensor (discussed with caregiver this might not be authorized by insurance, f/u w pcp). no rhabdo Condition at Discharge: Good Final Diagnosis/Problems List elevated CK type 1 DM Discharge Disposition: Home Discharge Instruct/Medications Diet: Consistent carbohydrate Activity: No Restrictions, As Tolerated Follow Up/Referral: PCP dc clinic Medications: glargine Scheduled Insulin Glargine-Yfgn (Insulin Glargine), 20 UNIT SC DAILY Miscellaneous Medications Insulin Regular (Human) (Humulin R), 100 UNIT IV, (Reported) Durable Medical Equipment Continuous Blood Glucose Syste (Dexcom G7 Sensor), MIS XX UD, (DME) Discharge Statement: "Patient was advised to return to the ER or call 911 if any headaches, dizziness, shortness of breath, chest pain, abdominal pain, bleeding, fevers, or worsening of medical condition. Patient was counseled about treatment plan, medications, possible side effects, patientverbalized understanding. All questions were answered to the best of my ability. This discharge took greater then 30 minutes in planning, reviewing documentation, counseling the patient, and discussing with other team members." ASSESSMENT ASSESSMENT Assessment elevated CK Date of Service: Oct 25, 2024 Billing Provider: HENRI ROBISON MD Common Visit Codes: 61003-ZUR/OBS DISCH DAY >30min HENRI ROBISON MD Oct 25, 2024 12:24
[2024-10-25] MEDS: INSULIN LISPRO (HUMAN) 100 UNITS/ML ML SC ONE (14:41)
[2024-10-25 14:47] VITALS: BP 109/76; PULSE 90; RESP 14; TEMP 98.9; O2SAT 90
--- NOTE | 2024-10-27 06:50 | ECG ---
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
== END 2024-10-25 14:49 | disposition home or self-care (01) | DRG 351 ==
LOC: ER 18:24 → OVERFLOW 23:00
PROVIDERS: ADMIT Internal Medicine; ATTEND Internal Medicine
DX: M62.82 Rhabdomyolysis (principal); E10.9 Type 1 diabetes mellitus without complications; E86.0 Dehydration; R74.8 Abnormal levels of other serum enzymes; Z79.4 Long term (current) use of insulin; Z82.49 Family history of ischemic heart disease and other diseases of the circulatory system; Z79.899 Other long term (current) drug therapy
CPT/HCPCS: 36415; 36600; 71045; 80053; 80307; 81003; 82550; 82805; 82962; 83036; 83605; 83690; 84484; 85025; 87040; 93005; 96360; G0378; J1815